=== PATIENT | male | born 1955 | race Caucasian/White ===

== ENCOUNTER 2018-08-08 09:31 | Emergency (ER) | payer SELFPAY ==
[2018-08-08 09:54] VITALS: BP 148/84
[2018-08-08] MEDS ORDERED: Tetan/Diph/Pertus SYR(Tdap)* 0.5 ML SYR(BOOSTRIX) use SYR IM ONE (10:04)
--- NOTE | 2018-08-08 10:14 | UC ---
Bite Injury/Animal HPI - HPI Summary HPI Summary: Pt presents with c/o of dog bite to right hand. Pt was watching neighbor/ friend dog last evening and states he "spooked" the dog and it bit him Believes that dog is UTD with all vaccines per neighbor. Dog is available for observation. Pt washed wound last night with soap and water. Pt is unsure last tetanus. - History of Current Complaint Chief Complaint: UCUpperExtremity Stated Complaint: ANIMAL BITE RIGHT HAND Time Seen by Provider: 08/08/18 09:58 Hx Obtained From: Patient Severity Currently: Mild Severity Initially: Moderate Pain Intensity: 0 Onset/Duration: Sudden Onset Type of Bite: Pet Has Animal Been Immunized?: Yes Character: Abrasion/Laceration Aggravating Factor(s): Other - movement Alleviating Factor(s): Rest Associated Signs And Symptoms: Positive: Negative Hx of Bite: Provoked by: - pt- "spooked" animal per pt Animal Available for Observation: Yes Animal Control Notified: No - Risk Factors Infection/Sepsis Risk Factors: Delay in Initial Treatment - Allergies/Home Medications Allergies/Adverse Reactions: Allergies Allergy/AdvReac Type Severity Reaction Status Date / Time No Known Allergies Allergy Verified 08/08/18 09:50 Home Medications: Home Medications Acetaminophen TAB* [Tylenol TAB*] 500 mg PO Q4H PRN 08/08/18 [History Confirmed 08/08/18] Albuterol HFA INHALER* [Ventolin HFA Inhaler*] 1 - 2 puff INH Q4H PRN 08/08/18 [ History Confirmed 08/08/18] PMH/Surg Hx/FS Hx/Imm Hx Previously Healthy: Yes - Surgical History Surgical History: Yes Surgery Procedure, Year, and Place: exploratory lung - Family History Known Family History: Positive: Cardiac Disease - Social History Occupation: Retired Lives: With Family Alcohol Use: Rare Substance Use Type: None Smoking Status (MU): Never Smoked Tobacco Have You Smoked in the Last Year: No - Immunization History Hx Tetanus, Diphtheria Vaccination: No Vaccination Up to Date: No Review of Systems All Other Systems Reviewed And Are Negative: Yes Constitutional: Positive: Negative Skin: Positive: Other - laceration Eyes: Positive: Negative ENT: Positive: Negative Respiratory: Positive: Negative Cardiovascular: Positive: Negative Gastrointestinal: Positive: Negative Motor: Positive: Negative Neurovascular: Positive: Negative Musculoskeletal: Positive: Negative, Myalgia, Other: - pain at bite site. Pt has full ROM. Neurological: Positive: Negative Psychological: Positive: Negative Is Patient Immunocompromised?: No Physical Exam Triage Information Reviewed: Yes Appearance: Well-Appearing Vital Signs: Initial Vital Signs Temp 98.1 F 08/08/18 09:48 Pulse 80 08/08/18 09:48 Resp 16 08/08/18 09:48 BP 148/84 08/08/18 09:48 Pulse Ox 98 08/08/18 09:48 Vital Signs Reviewed: Yes Eye Exam: Normal ENT Exam: Normal Dental Exam: Normal Neck exam: Normal Respiratory: Positive: No respiratory distress Musculoskeletal Exam: Normal Musculoskeletal: Positive: Strength Intact, ROM Intact Neurological Exam: Normal Psychological Exam: Normal Skin Exam: Other - laceration, animal bite Procedures - Laceration/Wound Repair 1 Location: upper extremity - right hand Description: Irregular Betadine Prep?: No Laceration/Wound Explored: Other - dog bite Closure: SteriStrips, Single Layer Layer Closure?: No Sterile Dressing Applied?: No Bite Injury Course/Dx - Differential Dx/Diagnosis Differential Diagnosis/HQI/PQRI: Rabies Exposure, Deep Space Infection Provider Diagnosis: Dog bite of hand without complication Discharge - Sign-Out/Discharge Documenting (check all that apply): Patient Departure All imaging exams completed and their final reports reviewed: No Studies - Discharge Plan Condition: Stable Disposition: HOME Prescriptions: Amoxicillin/Clavulanate TAB* [Augmentin TAB 500 mg*] 500 mg PO Q12H #14 tab Patient Education Materials: Animal Bite (ED) Referrals: Miriam Blackwell MD [Primary Care Provider] - If Needed - Billing Disposition and Condition Condition: STABLE Disposition: Home - Attestation Statements Provider Attestation: Per institutional requirements, I have reviewed the chart, however, I was not consulted specifically or made aware of this patient by the midlevel provider. I did not personally evaluate, interact with , or disposition this patient.
== END 2018-08-08 10:45 | disposition home or self-care (01) ==
LOC: UCCORT 09:31
DX: S61.411A Laceration without foreign body of right hand, initial encounter (principal); W54.0XXA Bitten by dog, initial encounter; Y92.009 Unspecified place in unspecified non-institutional (private) residence as the place of occurrence of the external cause; Z23 Encounter for immunization
CPT/HCPCS: 90471; 90715; 99203; G0463